=== PATIENT | female | born 1995 | race Caucasian/White ===

== ENCOUNTER → 2018-03-09 | Outpatient (CLI) | payer BC ==
[~2018-03-09] MED LIST: NO HOME MEDICATIONS
--- NOTE | 2018-03-09 08:58 | DIAGNOSTIC IMAGING REPORT ---
ABDOMINAL ULTRASOUND, RIGHT UPPER QUADRANT HISTORY: K52.9 Chronic nvriptahG46.11 Abdominal pain, RUQ (right upper qu. COMPARISON: None. FINDINGS: Pancreas: The pancreas demonstrates a normal echotexture. Liver: Unremarkable. Gallbladder: No gallbladder wall thickening. No gallstones. CBD: 3 mm. Right kidney: No hydronephrosis. IMPRESSION: No significant abnormality identified within the right upper quadrant. Electronically signed by: Farshad Machado M.D. 03/09/2018 8:57 AM Dictated Date/Time: 03/09/2018 8:55 AM
== END | disposition home or self-care (01) ==
LOC: C.ULTR 08:27
PROVIDERS: ATTEND Physician Assistant
DX: K52.9 Noninfective gastroenteritis and colitis, unspecified (principal); R10.11 Right upper quadrant pain

== ENCOUNTER → 2018-03-30 | Outpatient (CLI) | payer BC ==
--- NOTE | 2018-03-30 13:02 | DIAGNOSTIC IMAGING REPORT ---
NUCLEAR MEDICINE HEPATOBILIARY SCAN WITH EJECTION FRACTION HISTORY: Generalized ABDOMINAL PAIN, CHRONIC DIARRHEA COMPARISON: Abdominal ultrasound 03/09/2018. TECHNIQUE: Immediately following the intravenous administration of 5 mCi Tc-99m Choletec, dynamic anterior abdominal imaging pre/post oral intake of Boost was performed. FINDINGS: Uniform hepatic tracer accumulation is shown. Prompt intrahepatic biliary excretion is seen. The gallbladder, common bile duct, and small bowel are all visualized by 20 minutes. This appearance represents the normal sequence of biliary excretion. The gall bladder ejection fraction following administration of Kinevac was 47% (normal >35%). IMPRESSION: 1. No evidence for cystic duct obstruction. 2. Gallbladder ejection fraction calculated to be 47 %. Electronically signed by: Farshad Machado M.D. 03/30/2018 1:01 PM Dictated Date/Time: 03/30/2018 12:59 PM
== END | disposition home or self-care (01) ==
LOC: C.NUCL 10:10
PROVIDERS: ATTEND Internal Medicine
DX: K52.9 Noninfective gastroenteritis and colitis, unspecified (principal)